=== PATIENT | female | born 1970 | race Caucasian/White ===

== ENCOUNTER 2021-05-14 10:49 | Emergency (ER) | payer OTHER, MEDICAID ==
[~2021-05-14] VITALS: Ht 162.6 cm; Wt 100.0 kg
[2021-05-14 10:53] VITALS: BP 146/78
[2021-05-14] MEDS ORDERED: CYCL-1 PO (11:30)
[2021-05-14] MEDS ORDERED: ibuprofen tablet 400 MG TABLET PO ONE ×2 (11:35→11:50)
== END 2021-05-14 11:56 | disposition home or self-care (01) ==
LOC: ER 10:50
DX: S13.4XXA Sprain of ligaments of cervical spine, initial encounter (principal); R51.9 Headache, unspecified; Z88.2 Allergy status to sulfonamides; V89.2XXA Person injured in unspecified motor-vehicle accident, traffic, initial encounter; Y93.89 Activity, other specified; Y92.488 Other paved roadways as the place of occurrence of the external cause; Y99.8 Other external cause status
CPT/HCPCS: 99283

== ENCOUNTER 2024-04-01 07:38 | Day surgery (SDC) | payer MEDICAID ==
[2024-03-28 11:48] LABS: BASOPHILS # (AUTO) 0.1 X10'3 (0-0.2); BASOPHILS % (AUTO) 1.1 % (0-1); EOSINOPHILS # (AUTO) 0.1 X10'3 (0-0.9); EOSINOPHILS % (AUTO) 1.9 % (0-6); LYMPHOCYTES # (AUTO) 2.4 X10'3 (1.1-4.8); LYMPHOCYTES % (AUTO) 34.1 % (21-51); MEAN CORPUSCULAR HEMOGLOBIN 31.8 PG (27.0-31.0); MEAN CORPUSCULAR HGB CONC 34.7 g/dL (33.0-36.5); MEAN CORPUSCULAR VOLUME 91.7 FL (78-98); MONOCYTES # (AUTO) 0.6 X10'3 (0-0.9); MONOCYTES % (AUTO) 8.8 % (2-12); NEUTROPHILS # (AUTO) 3.8 X10'3 (1.8-7.7); NEUTROPHILS % (AUTO) 54.1 % (42-75); PRE OP HEMOGLOBIN 15.2 g/dL (12.0-16.0); PRE OP PLATELET COUNT 330 X10'3 (140-440); PRE OP WHITE BLOOD COUNT 7.1 10'3 (4.8-10.8); RED CELL DISTRIBUTION WIDTH 13.6 % (11.5-14.5)
[2024-03-28 12:12] LABS: ALBUMIN 3.7 G/DL (3.4-5.0); ALBUMIN/GLOBULIN RATIO 1.1 (1.1-1.5); ALKALINE PHOSPHATASE 112 IU/L (46-116); BLOOD UREA NITROGEN 8 MG/DL (7-18); BUN/CREATININE RATIO 10.1 (10.0-20.0); CALCIUM 9.1 MG/DL (8.5-10.1); CHLORIDE 105 MMOL/L (99-107); CREATININE 0.79 MG/DL (0.40-0.90); PRE OP ALT 44 U/L (30-65); PRE OP ANION GAP 11 (8-16); PRE OP AST 26 U/L (10-37); PRE OP BILIRUB, TOTAL 0.9 MG/DL (0.0-1.0); PRE OP GLUCOSE 81 MG/DL (70-104); PRE OP POTASSIUM 3.7 MMOL/L (3.4-5.1); PRE OP SODIUM 143 MMOL/L (135-145); TOTAL CARBON DIOXIDE 27.1 MMOL/L (24-32); eGFR 76 ML/MIN
[~2024-04-01] VITALS: Ht 160 cm; Wt 85.0 kg
[2024-04-01] VITALS (20 sets, daily range): BP systolic 137–171; BP diastolic 84–100; PULSE 55–87; RESP 10–16; TEMP 98.9; O2SAT 94–100
[2024-04-01] MEDS: cefazolin 2gm/D5W 100mL 100 ML IV ONE (05:30)
[~2024-04-01 07:38] MED LIST: CETI10CA PO; DULO60CA65 PO; LANS30CA56 PO; LIDOcaine 2% (20mg/ml) 5ml vial ONE; LURA20TA2 PO; MULT-1085 PO
[2024-04-01] MEDS: famotidine 20mg tablet PO ONE (08:28)
[2024-04-01] MEDS: ringers solution, lacted 1,000 ML IV SCH (08:29)
[2024-04-01] MEDS ORDERED: LIDOcaine 0.5% (5mg/ml) 50ml vial ONE (08:30)
[2024-04-01] MEDS ORDERED: MIDAZolam 1mg/ml 10ml vial ONE (08:30)
[2024-04-01] MEDS ORDERED: fentaNYL/PF 50MCG/1 ML 2ML syringe ONE (08:30)
[2024-04-01] MEDS ORDERED: ketorolac trometh. 30mg/ml inj. ONE (08:31)
[2024-04-01] MEDS ORDERED: LIDOcaine 2% (20mg/ml) 5ml vial ONE (08:31)
[2024-04-01] MEDS ORDERED: fentaNYL/PF 50MCG/1 ML 2ML syringe IV PRN ×2 (08:35)
[2024-04-01] MEDS ORDERED: morphine 2 MG/ML inj. syringe IV PRN (08:35)
[2024-04-01] MEDS ORDERED: labetalol 20mg/4ml (5mg/ml) syringe IV PRN (08:35)
[2024-04-01] MEDS ORDERED: ringers solution, lacted 1,000 ML IV SCH (08:35)
[2024-04-01] MEDS ORDERED: ondansetron/PF 4mg/2ml inj IV PRN (08:35)
[2024-04-01] MEDS ORDERED: morphine 4 MG/ML inj SYRINge IV PRN (08:35)
[2024-04-01] MEDS: BUPIVAcaine/PF 2.5mg/ml (0.25%) 10ml vial ONE (09:23)
[2024-04-01] MEDS ORDERED: BUPIVAcaine/PF 2.5mg/ml (0.25%) 10ml vial ONE (10:50)
[2024-04-01] MEDS: hydrALAZINE 20mg/ml inj. IV PRN (12:00)
== END 2024-04-01 12:50 | disposition home or self-care (01) ==
LOC: PAS 07:38
PROVIDERS: ATTEND Orthopaedic Surgery Hand Surgery
DX: G56.02 Carpal tunnel syndrome, left upper limb (principal); M18.12 Unilateral primary osteoarthritis of first carpometacarpal joint, left hand; E89.2 Postprocedural hypoparathyroidism; E66.9 Obesity, unspecified; K21.9 Gastro-esophageal reflux disease without esophagitis; F32.A Depression, unspecified; Z87.891 Personal history of nicotine dependence; Z79.899 Other long term (current) drug therapy; Z90.49 Acquired absence of other specified parts of digestive tract; Z90.710 Acquired absence of both cervix and uterus; Z98.84 Bariatric surgery status; Z98.890 Other specified postprocedural states; Z68.33 Body mass index [BMI] 33.0-33.9, adult; Z88.2 Allergy status to sulfonamides
CPT/HCPCS: 25447; 36415; 64721; 80053; 82948; 85025; J0360; J0690; J1885; J2250; J3010; J3490; J7030; J7120; Z7506; Z7512; A4215; A4618; A6449; A7000